=== PATIENT | female | born 1980 | race Two or more races ===

== ENCOUNTER 2023-12-13 22:18 | Emergency (ER) | payer MEDICAID, OTHER | END 2023-12-13 22:35 | disposition left against medical advice (07) | LOC: ER 22:19 | DX: R06.02 Shortness of breath (principal); R05.9 Cough, unspecified; Z53.21 Procedure and treatment not carried out due to patient leaving prior to being seen by health care provider ==

== ENCOUNTER 2025-01-22 09:23 | Emergency (ER) | payer MEDICAID ==
[~2025-01-22] VITALS: Ht 162.6 cm; Wt 88.5 kg
[2025-01-22 09:36] VITALS: BP 167/97; PULSE 76; RESP 19; TEMP 97.3; O2SAT 98
[2025-01-22 11:27] LABS: URINE HCG NEGATIVE (NEG)
[2025-01-22] MEDS ORDERED: CEFTRIAXONE 500 MG VIAL IM ONE (12:00)
[2025-01-22] MEDS ORDERED: METR-159 PO (12:03)
[2025-01-22] MEDS ORDERED: DOXY-460 PO (12:03)
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
[2025-01-22] MEDS: LEVONORGESTREL 1.5MG tablet 1.5 MG TABLET PO ONE (12:49)
[2025-01-22] MEDS: ondansetron 4mg rapidly disintigrating tab PO ONE (12:49)
[2025-01-22] MEDS: DOXYCYCLINE 100MG CAPSULE PO STA (12:49)
[2025-01-22] MEDS: CefTRIAXone 500MG IM Kit w/LIDOcaine IM ONE (12:49)
== END 2025-01-22 14:29 | disposition home or self-care (01) ==
LOC: ER 09:24 → EEVIPCON 09:24 → ER 14:29
DX: A64 Unspecified sexually transmitted disease (principal); Z79.3 Long term (current) use of hormonal contraceptives
CPT/HCPCS: 81025; 96372; 99284; J0696